=== PATIENT | female | born 1940 | race Caucasian/White ===

== ENCOUNTER 2021-04-20 17:41 | Inpatient (IN) | payer OTHER ==
[~2021-04-20] VITALS: Ht 165.1 cm; Wt 72.9 kg
--- NOTE | ~2021-04-20 | EMS ---
[address] [address] EMS Patient Care Report Name: GILL GABRIEL Room #: 451-P ADM IN M.R.#: [id number] Admission: 04/20/21 Attend Phys: Jesus Killian MD Discharge: Date of : 42 Report #: [id number] THIS REPORT FOR: //name// Report Transmitted: 04/24/2021 09:55 EMS Care Summary [place], [place]/[facility] Incident [id number] @ 04/20/2021 17:10 Incident Location [address] [place], [place] [id number] Patient GILL BECKETT Female, 80 Years 1940 Patient Address [address] [place], [place] [id number] Patient History Dementia,Alzheimer's, Patient Allergies Codeine, Chief Complaint NEED FOR MEDICAL EVALUATION/POSSIBLE NEGLECT Disposition Transported No Lights/[place] Dis[place] Reason Falls Transported To [facility] Narrative [facility]/MED[facility] 30 WERE DISPATCHED TO THE ADDRESS LISTED PREVIOUSLY IN THIS REPORT ON A FALL. UPON ARRIVAL, EMS OBSERVED ONE FEMALE PATIENT BEING CARRIED TO EMS VIA [employer] PRESS TENDER BY PREVIOUSLY ARRIVING ALS FIRE PERSONNEL. PATIENT WAS NOT TRACKING EMS UPON APPROACH. PATIENT'S HOSPICE NURSE INFORMED EMS THAT THE PATIENT HAD FALLEN OUT OF A CHAIR SEVERAL HOURS PRIOR TO EMS ARRIVAL. HOSPICE NURSE INFORMED EMS THAT THE PATIENT'S FAMILY HAD BEEN NEGLECTFUL IN FOLLOWING [address] [address] EMS Patient Care Report Name: GILL GABRIEL Room #: 451- ADM IN ..#: [id number] Admission: 04/20/21 Attend Phys: Jesus Killian MD Discharge: Date of : 42 Report #: [id number] THOUGH WITH PREVIOUS PATIENT CARE PLAN WHICH INCLUDED PLACED SOFT MATS BELOW THE PATIENT TO ABSORB FALLS. PATIENT WAS THEN PLCCED ON THE COT AND MOVED TO THE AMBULANCE WITHOUT INCIDENT. ONCE IN THE AMBULANCE, VITAL SIGN MONITORING CONTINUED. EMS OBSERVED MULTIPLE BRUSIES IN VARIOUS STAGES OF HEALING TO THE PATIENT'S KNEES. EMS OBSERVED A LARGE BRUISE IN VARIOUS STAGES OF HEALING TO THE PATIENT'S CHEST. ONCE ENROUTE TO THE RECEIVING FACILITY ([facility]), VITAL SIGN MONITORING CONTINUED AND RADIO REPORT WAS GIVEN. UPON ARRIVAL AT THE RECEIVING FACILITY, PATIENT WAS MOVED FROM THE AMBULANCE TO THE HOSPITAL COT WITHOUT INCIDENT. VERBAL REPORT WAS GIVEN TO THE PATIENT'S NURSE AND PATIENT CARE WAS TRANSFERRED. Initial Vitals @17:23P: 114,R: 16,BP: 121/77,Pain: 0/10,GCS: 12,Glucose: 96,SpO2: 94,Revised Trauma: 11, Assessments @17:19MENTAL:Other,Confused,SKIN:HEENT:LUNG SOUNDS:ABDOMEN:PELVIS//GI:EXTREMITIES:PULSE:Radial: 2+ Normal,NEURO: Impression Need for continuous medical supervision Procedures @PTAALS AssessmentResponse: UnchangedSucceeded Timeline VETERINARY LABORATORY TECHNICIAN,ALS Assessment,Response: UnchangedSucceeded, 17:09,Call Received 17:09,Dispatch Notified 17:10,Dispatched 17:10,En Route 17:19,At Patient 17:19,On Scene 17:23,BP: 121/77 M,PULSE: 114,RR: 16 R,SPO2: 94 Ox,ETCO2: ,B,PAIN: 0,GCS: 12, 17:28,Depart Scene 17:36,At Destination 17:56,Call Closed Disclaimer v1.1 Copyright 2020 [employer] This EMS Care Summary contains data elements from the applicable legal record (which may be displayed differently). It is designed to provide pertinent information for the following purposes: continuity of care, clinical quality, and state data reporting. The complete legal record is available to ED staff and administrators of the receiving hospital in [employer]'s Patient Tracker. All data [address] [address] EMS Patient Care Report Name: HARVEYGILL Room #: 451-P ADM IN .R.#: [id number] Admission: 04/20/21 Attend Phys: Jesus Killian MD Discharge: Date of : 42 Report #: [id number] is provided "as is."
[2021-04-20 17:55] VITALS: BP 147/88; BP 172/122
[2021-04-20] MEDS ORDERED: COZAAR 50 MG TA50 M1 PO (18:47)
[2021-04-20] MEDS ORDERED: TRAZODONE HCL50 MG PO (18:47)
[2021-04-20] MEDS ORDERED: NORVASC5 MG PO (18:47)
[2021-04-20] MEDS ORDERED: ZYRTEC10 M5 PO (18:47)
[2021-04-20] MEDS ORDERED: LORAZEPAM I2 MG/1 ML PO (18:50)
[2021-04-20 19:17] LABS: CALCIUM 10.1 mg/dL (8.5-10.1); CREATININE 1.9 mg/dL (0.6-1.0)
[2021-04-20 19:19] LABS: ABSOLUTE NEUTROPHILS 13.2 thou/uL (1.4-8.2); BASOPHILS 0.4 % (0.0-2.0); EOSINOPHILS 0.2 % (0.0-3.0); HEMATOCRIT 35.1 % (37.0-47.0); HEMOGLOBIN 11.5 gm/dL (12.0-15.0); LYMPHOCYTES 6.4 % (24.0-44.0); MCH 29.2 pg (26.0-34.0); MCHC 32.8 g/dL (28.0-37.0); MCV 89.3 fL (80.0-100.0); PLATELET COUNT 282 thou/uL (150-400); RBC 3.93 mil/uL (4.20-5.00); RDW 14.2 % (10.5-14.5); WBC 15.2 thou/uL (4.0-11.0)
[2021-04-20 19:26] LABS: POTASSIUM 4.8 mmol/L (3.5-5.1)
[2021-04-20 21:40] VITALS: BP 137/69
[2021-04-20 23:19] LABS: URINE BLOOD NEGATIVE (Negative); URINE CLARITY CLEAR; URINE COLOR YELLOW; URINE GLUCOSE-RANDOM* NEGATIVE (Negative); URINE KETONES TRACE (Negative); URINE LEUKOCYTES-REFLEX NEGATIVE (Negative); URINE NITRITE-REFLEX NEGATIVE (Negative); URINE PROTEIN (DIPSTICK) NEGATIVE (Negative); URINE SPECIFIC GRAVITY >= 1.030 (1.005-1.035); URINE UROBILINOGEN 0.2 E.U./dl (0.2-1.0)
[2021-04-20 23:26] LABS: ICTOTEST (BILI CONFIRMATORY) Negative (Negative); URINE BILIRUBIN NEGATIVE (Negative)
[2021-04-20 23:29] VITALS: BP 148/68
[2021-04-21 00:02] VITALS: BP 151/69
[2021-04-21 05:51] VITALS: BP 122/48; BP 147/82
[2021-04-21 07:35] VITALS: BP 150/70
[2021-04-21 16:03] VITALS: BP 151/80
[2021-04-21 20:36] VITALS: BP 177/103
[2021-04-22 08:13] VITALS: BP 138/48
[2021-04-22 16:26] VITALS: BP 128/64
[2021-04-22 20:24] VITALS: BP 140/85
[2021-04-23 07:20] VITALS: BP 137/82
--- NOTE | 2021-04-23 07:34 | EKG ---
[address] [address] ELECTROCARDIOGRAM REPORT Name: GILL GABRIEL Room #: 451-P [facility] IN ..#: [id number] Admission: 04/20/21 Attend Phys: Jesus Killian MD Discharge: Date of : 42 Report #: [id number] [facility] ED Test Date: 2021-04-20 Test Time: 18:17:02 Pat Name: GILL GABRIEL Department: Room: [facility] Gender: F [employer] Interleafer: : 1940 Requested By: Isidro Garcia Order Number: [id number] MD: Fabricio Jones Measurements Intervals [place] Rate: 107 P: 79 NV: 139 QRS: 29 QRSD: 62 T: -59 QT: 393 QTc: 525 Interpretive Statements Sinus tachycardia with irregular rate Borderline repolarization abnormality Prolonged QT interval No previous ECG available for comparison Electronically Signed On 04-23-2021 7:34:38 CDT by Fabricio Jones [email or web address] <ELECTRONICALLY SIGNED> By: Fabricio Jones MD, [facility] 04/23/21 0734 1817 16 Fabricio Jones MD, FACC /EPI
[2021-04-23 17:26] VITALS: BP 158/87
[2021-04-23 19:36] VITALS: BP 155/48
[2021-04-23 23:31] VITALS: BP 155/48
[2021-04-24 07:52] VITALS: BP 152/61
[2021-04-24 15:07] VITALS: BP 162/81
[2021-04-24 19:39] VITALS: BP 156/61
[2021-04-25 08:09] VITALS: BP 129/82
[2021-04-25 15:53] VITALS: BP 166/62
[2021-04-25 19:42] VITALS: BP 122/87
[2021-04-26 07:53] VITALS: BP 127/108
[2021-04-26 20:34] VITALS: BP 119/105
[2021-04-27 08:13] VITALS: BP 139/54
[2021-04-27 15:16] VITALS: BP 155/82
[2021-04-28 07:26] VITALS: BP 150/88
[2021-04-28 16:03] VITALS: BP 106/91
[2021-04-28 20:09] VITALS: BP 126/82
[2021-04-29 08:01] VITALS: BP 114/91
[2021-04-29 19:31] VITALS: BP 129/60
[2021-04-30 07:42] VITALS: BP 153/72
[2021-04-30 16:10] VITALS: BP 156/77
[2021-04-30 20:08] VITALS: BP 148/78
[2021-05-01 08:07] VITALS: BP 136/67; BP 191/99
[2021-05-01 10:34] VITALS: BP 141/96
[2021-05-01] MEDS ORDERED: MORPHINE S100 MG/51 SUBLING (14:25)
[2021-05-01] MEDS ORDERED: LORAZEPAM I2 MG/1 ML PO (14:25)
== END 2021-05-01 16:16 | disposition hospice, home (50) | DRG 682 ==
LOC: ER 17:41 → 4W 21:01 → EROBS 21:01 → 4W 23:30
PROVIDERS: Nurse Practitioner; ADMIT Internal Medicine; ATTEND Internal Medicine
DX: N17.9 Acute kidney failure, unspecified (principal); R65.11 Systemic inflammatory response syndrome (SIRS) of non-infectious origin with acute organ dysfunction; M62.82 Rhabdomyolysis; T74.11XA Adult physical abuse, confirmed, initial encounter; T74.01XA Adult neglect or abandonment, confirmed, initial encounter; S20.01XA Contusion of right breast, initial encounter; F03.90 Unspecified dementia, unspecified severity, without behavioral disturbance, psychotic disturbance, mood disturbance, and anxiety; I10 Essential (primary) hypertension; F41.9 Anxiety disorder, unspecified; Z66 Do not resuscitate; R53.81 Other malaise; W18.39XA Other fall on same level, initial encounter; Z20.822 Contact with and (suspected) exposure to COVID-19; Y93.89 Activity, other specified; Y92.89 Other specified places as the place of occurrence of the external cause; Y99.8 Other external cause status
CPT/HCPCS: 10040